=== PATIENT | female | born 1950 | race Caucasian/White ===

== ENCOUNTER → 2016-11-21 | Outpatient (CLI) | payer MEDICARE, OTHER ==
--- NOTE | 2016-11-21 12:09 | KCIC ---
Chest PA and lateral Indication: Subacromial impingement of the left shoulder. Time of exam 11:42 a.m. Comparison is made with prior chest radiograph from 11/24/2010. The heart size is normal. The lungs are clear. The pulmonary vascularity is normal. No effusion or pneumothorax is seen. The bony structures are unremarkable. Impression: No acute cardiopulmonary process is detected. Electronically signed by: Rip Pérez MD (Nov 21, 2016 12:07:56)
== END | disposition home or self-care (01) ==
LOC: KCIC 11:33
PROVIDERS: ATTEND Physician Assistant Surgical
DX: M25.512 Pain in left shoulder (principal); M75.42 Impingement syndrome of left shoulder
CPT/HCPCS: 71020